=== PATIENT | male | born 1935 | race Caucasian/White ===

== ENCOUNTER → 2017-02-13 | Outpatient (CLI) | payer MEDICARE, BC ==
[2017-02-13 10:26] LABS: Blood Urea Nitrogen 15 mg/dL (9-20); Non-African American GFR(MDRD) >60 (>60 ml/min/1.73 sqM)
--- NOTE | 2017-02-13 11:32 | CT ---
EXAMINATION TYPE: CT angio chest DATE OF EXAM: 02/13/2017 COMPARISON: CTA Chest 10-27-2014. HISTORY: thoracic aortic aneurysm progress study. CT DLP: 1257 mGycm. Automated Exposure Control for Dose Reduction was Utilized. CONTRAST: CTA scan of the thorax is performed without and with IV Contrast, patient injected with 100 mL of Omn ipaque 350, pulmonary embolism protocol. Three-D reconstructed Images are created on independent work station and reviewed. FINDINGS: LUNGS: There is background of moderate emphysematous change redemonstrated. There is mild to moderate biapical scarring redemonstrated. There is scarring and atelectatic change dependently in the right lower lobe. There is persistent tiny left pleural fluid collection or thickening. No suspicious new p arenchymal nodule or mass is identified. No pleural effusion or pneumothorax is seen. Tracheobronchia l tree is patent. MEDIASTINUM: There is satisfactory enhancement of the pulmonary artery and its branches, there is no CT evidence for pulmonary embolism. There are no greater than 1 cm hilar or mediastinal lymph nodes. There is persistent mild cardiomegaly and tiny pericardial effusion along posterior inferior aspect. Main pulmonary artery measures 3.0 cm in diameter on axial image 23. Adjacent ascending aorta measur es 4.2 x 3.9 cm in diameter. There is mild calcified peripheral plaque in the aortic arch and descend ing aorta. No aneurysmal change is present. OTHER: There is redemonstration of cholecystectomy clips and simple appearing 6.5 cm cyst left hepat ic lobe. There is moderate to severe multilevel spurring in the thoracic spine redemonstrated. IMPRESSION: 1. Stable 4.2 cm aneurysm of the ascending aorta. Moderate emphysematous change is redemonstrated. No new acute pulmonary process is evident.
== END | disposition home or self-care (01) ==
LOC: RADCTMAIN 09:55
PROVIDERS: ATTEND Internal Medicine Interventional Cardiology
DX: I71.2 Thoracic aortic aneurysm, without rupture (principal); J43.9 Emphysema, unspecified
CPT/HCPCS: 82565; 84520; 71275; 36415; Q9967

== ENCOUNTER → 2017-11-04 | Outpatient (CLI) | payer MEDICARE, BC ==
[2017-11-04 08:50] LABS: HGB 14.7 gm/dL (13.0-17.5); MCH 31.4 pg (25.0-35.0); MCHC 33.4 g/dL (31.0-37.0); MCV 94.2 fL (80.0-100.0); Mean Platelet Volume 6.4; Platelet Count 260 k/uL (150-450); RBC 4.68 m/uL (4.30-5.90); RDW 13.5 % (11.5-15.5); WBC 6.2 k/uL (3.8-10.6)
[2017-11-04 09:14] LABS: Potassium 5.1 mmol/L (3.5-5.1)
== END | disposition home or self-care (01) ==
LOC: LABPAT 08:21
PROVIDERS: ATTEND Internal Medicine Interventional Cardiology
DX: Z01.812 Encounter for preprocedural laboratory examination (principal); R94.30 Abnormal result of cardiovascular function study, unspecified
CPT/HCPCS: 36415; 80051; 82565; 84520; 85027

== ENCOUNTER 2017-11-10 06:34 | Day surgery (SDC) | payer MEDICARE, BC ==
[2017-10-31 12:59] VITALS: BMI 29.5
[~2017-11-10 06:34] MED LIST: ALPRAZolam 0.25 MG TAB PO PRN; ALPRAZolam 0.5 MG TAB PO PRN; ASPIRIN 325 MG TAB PO STA; ATORVASTATIN 80 MG TAB PO STA; NITROGLYCERIN SL TABS 0.4 MG TAB SUBLINGUAL PRN; SODIUM CHLORIDE 0.9% 1,000 ML in EMPTY BAG 1 BAG IV ONE
[2017-11-10] MEDS ORDERED: HEPARIN SODIUM 1,000 UN/ML (10ML VL) ONE (07:22)
[2017-11-10] MEDS ORDERED: diphenhydrAMINE 50 MG/ML 1 ML VIAL ONE (07:22)
[2017-11-10] MEDS ORDERED: ASPIRIN 325 MG TAB ONE (07:22)
[2017-11-10] MEDS ORDERED: fentaNYL (PF) 50 MCG/ML 2 ML AMP ONE (07:22)
[2017-11-10] MEDS ORDERED: ASPIRIN 325 MG TAB PO ONE (07:28)
[2017-11-10] MEDS ORDERED: diphenhydrAMINE 50 MG/ML 1 ML VIAL IVP ONE (07:39)
[2017-11-10] MEDS ORDERED: fentaNYL (PF) 50 MCG/ML 2 ML AMP IVP ONE (07:39)
[2017-11-10] MEDS ORDERED: LIDOCAINE 2% INJ 20 MG/ML SQ ONE ×3 (07:45→07:50)
[2017-11-10] MEDS ORDERED: VERAPAMIL SYRINGE (5 MG/10 ML) INTRAARTER ONE (07:46)
[2017-11-10] MEDS ORDERED: IOPAMIDOL-370 50ML BTL INJ ONE (08:05)
[2017-11-10] MEDS ORDERED: IOPAMIDOL-370 125ML BTL INJ ONE (08:06)
[2017-11-10] MEDS ORDERED: RX INFO: IV CONTRAST WAS GIVEN 1 EACH MISC MISCELLANE PRN (08:25)
[2017-11-10] MEDS ORDERED: CALCIUM CARBONATE 500 MG CHEWABLE PO PRN (08:26)
[2017-11-10] MEDS ORDERED: SODIUM CHLORIDE 0.9% 1,000 ML IV SCH (08:30)
[2017-11-10] MEDS ORDERED: LISINOPRIL 5 MG TAB PO SCH (09:00)
[2017-11-10] MEDS ORDERED: CHOLECALCIFEROL 1,000 UNIT TAB PO SCH (09:00)
[2017-11-10] MEDS ORDERED: METOPROLOL SUCCINATE (ER) 50 MG TAB.ER.24H PO SCH (09:00)
--- NOTE | 2017-11-10 09:07 | CC ---
CARDIAC CATHETERIZATION REPORT Mr. Noriega is an 82-year-old male with a known history of hypertension, hyperlipidemia, history of ascending aortic aneurysm, who has been complaining of progressive dyspnea and fatigue, underwent stress test that showed evidence of lateral wall ischemia. In view of that, recommendation made regarding cardiac catheterization. The procedures, risks and complication were discussed with the patient who is in full understanding and agreement. PROCEDURE: Patient was brought to the [facility] in the fasting semi-sedated state after receiving fentanyl and Benadryl and achieving moderate conscious sedated state. Using Xylocaine anesthesia and the Seldinger technique, a 6-Bermudian sheath was introduced in the right radial artery. Attempts to have advanced the catheter in the ascending aorta were unsuccessful because of severe tortuosity. At that time, using Xylocaine anesthesia and Seldinger technique, a 6-Bermudian sheath was introduced in the right femoral artery. Selective right and left angiography performed using 5-Bermudian 4 bend right Tati catheter and a 6-Bermudian 4.5 bend left Tati catheter. Multiple views of the coronary artery including rufino-axial views obtained. Following that, a 6-Bermudian tight pigtail catheter was introduced into the left ventricle and a 30 degree DANGELO view of the left ventricle was obtained. Following that, the catheter and sheaths were removed. Hemostasis was obtained with deployment of an Angio-Seal in the right femoral artery and TR band on the right radial artery. There was no immediate complication. Of note, the patient received 4500 units of intravenous heparin as well as intra-arterial verapamil. FINDINGS: 1. LEFT MAIN: This is a large-sized vessel, trifurcating into left circumflex, left anterior descending artery and ramus intermedius. Left main coronary artery has a 20% plaque proximally. 2. LEFT ANTERIOR DESCENDING ARTERY: This is a large-sized vessel reaching toward the apex with a wraparound apex segment giving rise to 2 diagonal branches of small caliber. The left anterior descending artery has mild intimal disease of 10% to 20% without any evidence of high-grade stenosis. 3. LEFT CIRCUMFLEX: This is a nondominant vessel, giving rise to a small to moderately sized obtuse marginal branch. The left circumflex and its branches have no evidence of obstructive coronary artery disease. 4. RAMUS INTERMEDIUS: This is a small sized vessel that has no evidence of high-grade stenosis. 5. RIGHT CORONARY ARTERY: This is a large dominant vessel bifurcating into PDA and postoperative single branches. The right coronary artery has intimal disease throughout its course of 30%-40% without any evidence of high-grade stenosis. The PLV reaches toward the apical lateral wall. 6. LEFT VENTRICULOGRAM: Left ventriculogram is performed in 30 degree DANGELO view and revealed normal left ventricular size systolic function. There was catheter- induced mitral regurgitation and dilatation of the ascending aorta. HEMODYNAMICS: There was no gradient across the aortic valve. The left ventricle end-diastolic pressure was 20 to 24 mmHg. CONCLUSION: 1. Mild to moderate disease involving the right coronary artery with mild disease in the left anterior descending artery and mild plaque in the ostial left main. 2. Normal left ventricular size and systolic function. RECOMMENDATION: In view of finding anatomy, I recommend continue medical therapy with aggressive risk- factor modifications being initiated. Those findings and recommendation were discussed with the patient and his family who are in full understanding and agreement. DURATION OF THE PROCEDURE: 27 minutes. NICHOLAS / AUGUSTN: [id number] /
--- NOTE | 2017-11-10 09:11 | LTR ---
DATE OF SERVICE: 11/10/2016 RE: Román Noriega Dear Dr. Patel; I had the please to perform cardiac catheterization on Mr. Noriega at [facility] on November 10, 2017 and a full copy of the procedure note will be forwarded to you. In brief, he was found to have [id number] coronary artery disease without any evidence of high-grade stenosis and a preserved systolic function. Based on those findings, I have recommended continue medical therapy with aggressive risk-factor modifications being initiated. Thank you again for allowing me to participate in your patient's care. Please feel free to call for any questions. Sincerely yours, MD NICHOLAS Bowens / AUGUSTN: [id number] /
[2017-11-10 10:01] VITALS: TEMP 96.6
[2017-11-10 11:11] VITALS: RESP 18
[2017-11-10 12:37] VITALS: BP 136/66; PULSE 73
[2017-11-10] MEDS ORDERED: ATORVASTATIN 10 MG TAB PO SCH (21:00)
== END 2017-11-10 15:45 | disposition home or self-care (01) ==
LOC: CATHCVL 06:34 → 6SEL 08:23 → CATHCVL 15:45
PROVIDERS: ATTEND Internal Medicine Interventional Cardiology
DX: I25.10 Atherosclerotic heart disease of native coronary artery without angina pectoris (principal); R94.39 Abnormal result of other cardiovascular function study; I35.1 Nonrheumatic aortic (valve) insufficiency; I10 Essential (primary) hypertension; E78.2 Mixed hyperlipidemia; I71.2 Thoracic aortic aneurysm, without rupture; I73.9 Peripheral vascular disease, unspecified; Z79.01 Long term (current) use of anticoagulants; Z79.899 Other long term (current) drug therapy
CPT/HCPCS: 93458; C1760; C1894 ×2; C1769 ×2; J2001; J1200; J3010; J1644; Q9967 ×2

== ENCOUNTER → 2018-11-17 | Outpatient (CLI) | payer MEDICARE, BC ==
--- NOTE | 2018-11-17 14:26 | CT ---
EXAMINATION TYPE: CT angio chest DATE OF EXAM: 11/17/2018 COMPARISON: CTA chest February 13, 2017. HISTORY: Thoracic aortic aneurysm CT DLP: 530.72 mGycm. Automated Exposure Control for Dose Reduction was Utilized. CONTRAST: CTA scan of the thorax is performed with IV Contrast, patient injected with 80 mL of Isovue 370, pulm onary embolism protocol. Three-D reconstructed images are created on independent workstation and revi ewed. FINDINGS: LUNGS: Moderate underlying emphysematous changes redemonstrated most prominent in the lung apices. Th ere is persistent eccentric left pleural thickening and/or chronic consolidation causing blunting of the lateral costophrenic angle. There is patchy reticulation and/or fibrosis throughout the right low er lobe redemonstrated. There is mild to moderate biapical pleural/parenchymal scarring again seen. N o pneumothorax is noted. No new pleural effusion is present. MEDIASTINUM: There is satisfactory enhancement of the central pulmonary arteries. Main pulmonary sylvain ry measures 2.9 cm in diameter axial image 58 not significant change from prior. Adjacent ascending a rubina measures up to 4.2 cm in diameter on same image not significantly changed from prior. Mild plaqu e in the aortic arch extending into descending aorta is redemonstrated There are no greater than 1 c m hilar or mediastinal lymph nodes. No significant pericardial effusion is seen. Mild cardiomegaly is redemonstrated. Coronary artery calcification is again seen which is noted marker for underlying c oronary artery disease. OTHER: Hypodense lesions scattered throughout the liver felt to reflect simple thin-walled cysts. Sto mach is poorly distended. Cholecystectomy clips are redemonstrated. Moderate to severe multilevel spu rring in the visualized spine is again seen. IMPRESSION: Stable 4.2 cm ascending aortic aneurysm.
== END | disposition home or self-care (01) ==
LOC: RADCTMAIN 12:38
PROVIDERS: ATTEND Internal Medicine Interventional Cardiology
DX: I71.2 Thoracic aortic aneurysm, without rupture (principal)
CPT/HCPCS: 82565; 84520; 71275; 36415; Q9967